=== PATIENT | male | born 1965 | race African-American/Black ===

== ENCOUNTER 2017-11-28 22:35 | Observation (INO) ==
[2017-11-28] MEDS ORDERED: SODIUM CHLORIDE 0.9% 2,000 ML IV STA (22:52)
[2017-11-28] MEDS ORDERED: ONDANSETRON 4 MG/2 ML VIAL IV STA (22:52)
[2017-11-28] MEDS ORDERED: ASPIRIN CHEW 81 MG TABLET PO STA (22:53)
[2017-11-28] MEDS ORDERED: THIAMINE 200 MG/2 ML VIAL IV STA (22:53)
[2017-11-28] MEDS ORDERED: THIAMINE 200 MG/2 ML VIAL ONE (23:21)
[2017-11-28] MEDS ORDERED: ASPIRIN 325 MG TABLET ONE (23:22)
[2017-11-28] MEDS ORDERED: ONDANSETRON 4 MG/2 ML VIAL ONE (23:22)
[2017-11-29 00:02] LABS: Basophils % 0.5 % (0.0-0.8); Eosinophils % 0.1 % (0.00-10.9); Hematocrit 31.4 VOL% (42.0-52.0); Hemoglobin 11.3 GM/DL (14.0-18.0); Immature Granulocytes % 0.8 %; Immature Granulocytes Absolute 0.06 #; Lymphocytes # 0.9 10*3/uL (1.4-4.0); Lymphocytes % 11.7 % (21.2-54.2); Mean Corpuscular Hemoglobin 33 PG (27-34); Mean Corpuscular Volume 91.5 FL (87-102); Mean Platelet Volume 10.9 FL (9.6-12.0); Monocytes # 0.7 10*3/uL (0.11-0.8); Monocytes % 9.5 % (1.7-12.7); Neutrophils % 77.4 % (38.7-73.9); Platelet Count 74 T/CUMM (130-400); Red Blood Count 3.43 MC/CUMM (3.8-5.5); Red Cell Distribution Width 12.6 % (9.3-17.3); White Blood Count 7.7 T/CUMM (4-12)
[2017-11-29 00:20] LABS: Alanine Aminotransferase 52 U/L (16-61); Albumin 3.8 G/DL (3.4-5.0); Alkaline Phosphatase 72 U/L (45-117); Aspartate Amino Transferase 85 U/L (0-37); Bilirubin,Indirect 1.3 MG/DL (0.0-1.0); Total Protein 8.3 G/DL (6.4-8.3); Troponin I Only < 0.015 NG/ML (0.00-0.045)
[2017-11-29 01:46] LABS: Apearance,Urine CLOUDY (Clear); Bacteria,Urine Occasional /HPF (Few); Bilirubin,Urine Negative (Negative); Blood, Urine Small mg/dL (Negative); Glucose,Urine (UA) 50 mg/dL (Negative); Granular Casts,Urine 3 /LPF (0-1); Hyaline Casts,Urine 85 /LPF (0-3); Ketones,Urine 5 mg/dL (Negative); Mucus,Urine Occasional /LPF (Occasional); Nitrite,Urine Negative (Negative); Protein,Urine 100 MG/DL; RBC,Urine 1 /HPF (0-4); Squamous Epithelial Cell,Urine Occasional /HPF (0-10); Urine Color Amber (Yellow); Urine Specific Gravity 1.023 (1.001-1.035); WBC,Urine 2 /HPF (0-6)
[2017-11-29 03:00] LABS: Calcium 8.9 MG/DL (8.5-10.1); Osmolality,Calculated 260.2 MOS/KG (273-304); Potassium 3.3 MMOL/L (3.5-5.1)
[2017-11-29] MEDS ORDERED: ONDANSETRON 4 MG/2 ML VIAL IV PRN (03:10)
[2017-11-29] MEDS ORDERED: LORazepam 2 MG/1 ML VIAL IV PRN (03:10)
[2017-11-29] MEDS ORDERED: MORPHINE 10 MG/1 ML VIAL IV PRN (03:10)
[2017-11-29] MEDS ORDERED: MAGNESIUM SULF RIDER 2 GM in PREMIX 1 EACH IV ONE (03:16)
[2017-11-29] MEDS ORDERED: POTASSIUM CHLORIDE 20 MEQ TABLET PO ONE (03:30)
[2017-11-29 03:44] LABS: Barbiturates Screen,Urine Negative (Negative); Benzodiazepines Screen,Urine Negative (Negative); Cannabinoid Screen,Urine Negative (Negative); Opiate Screen,Urine Negative (Negative); Phencyclidine Screen,Urine Negative (Negative)
[2017-11-29 03:53] LABS: Basophils # 0.1 10*3/uL (0.0-0.2); Basophils % 0.7 % (0.0-0.8); Hematocrit 26.3 VOL% (42.0-52.0); Hemoglobin 9.5 GM/DL (14.0-18.0); Immature Granulocytes % 2.4 %; Immature Granulocytes Absolute 0.17 #; Lymphocytes # 0.9 10*3/uL (1.4-4.0); Lymphocytes % 13.1 % (21.2-54.2); Mean Corpuscular HGB Conc 36.1 GM/DL (32-36); Mean Corpuscular Hemoglobin 33 PG (27-34); Mean Platelet Volume 10.5 FL (9.6-12.0); Monocytes # 0.7 10*3/uL (0.11-0.8); Monocytes % 9.6 % (1.7-12.7); Neutrophils # 5.2 10*3/uL (1.4-7.4); Neutrophils % 74.2 % (38.7-73.9); Red Blood Count 2.89 MC/CUMM (3.8-5.5); Red Cell Distribution Width 12.8 % (9.3-17.3)
[2017-11-29 03:59] LABS: Platelet Count 62 T/CUMM (130-400)
[2017-11-29 04:15] LABS: Cholesterol 175 MG/DL (50-200); HDL Cholesterol 81 MG/DL (40-60); Risk Ratio 2.16; Triglycerides 52 MG/DL (2-150); VLDL CHOLESTEROL 10.4 MG/DL
[2017-11-29 04:20] LABS: Band Neutrophils 3 % (0-10); Lymphocytes 15 % (20-55); Platelet Estimate Decreased; Segmented Neutrophils 70 % (50-85); Total Cells Counted 100
[2017-11-29 04:21] LABS: Giant Platelets Few; Hypochromasia 1+
[2017-11-29 04:26] LABS: Folate 3.4 NG/ML (5.4-24.0); Vitamin B12 438 PG/ML (211-911)
[2017-11-29] MEDS ORDERED: MAGNESIUM SULF RIDER 1 GM in PREMIX 1 EACH IV ONE (04:30)
[2017-11-29] MEDS: SODIUM CHLORIDE 0.9% 1,000 ML IV SCH ×2 (04:40→14:31)
[2017-11-29 05:04] LABS: Sedimentation Rate-Westergren 70 MM/HR (0-15)
[2017-11-29] MEDS: NITROGLYCERIN 2% OINT 1 INCH/GM PACK TOP SCH ×3 (06:22→17:57)
[2017-11-29 09:32] LABS: Hemoglobin A1 (Alkaline) 97.7 % (96.5-98.5); Hemoglobin A2 (Alkaline) 2.3 % (1.5-3.5)
[2017-11-29] MEDS: FOLIC ACID 1 MG TABLET PO SCH (09:36)
[2017-11-29] MEDS: MULTIVITAMIN (CENTRUM) TABLET PO SCH (09:36)
[2017-11-29] MEDS: ASPIRIN EC 81 MG TABLET PO SCH (09:36)
[2017-11-29] MEDS: THIAMINE 100 MG TABLET PO SCH (09:36)
[2017-11-29] MEDS: amLODIPine 5 MG TABLET PO SCH (11:42)
[2017-11-29] MEDS: SODIUM CHLORIDE 1 GM TABLET PO SCH ×2 (15:51→20:43)
[2017-11-30] MEDS: NITROGLYCERIN 2% OINT 1 INCH/GM PACK TOP SCH ×4 (02:18→18:35)
[2017-11-30 05:44] LABS: Albumin 3.3 G/DL (3.4-5.0); Bilirubin,Total 1.4 MG/DL (0.2-1.0); Calcium 8.4 MG/DL (8.5-10.1); Osmolality,Calculated 268.1 MOS/KG (273-304); Total Protein 7.1 G/DL (6.4-8.3)
[2017-11-30] MEDS: MULTIVITAMIN (CENTRUM) TABLET PO SCH (09:18)
[2017-11-30] MEDS: ASPIRIN EC 81 MG TABLET PO SCH (09:18)
[2017-11-30] MEDS: FOLIC ACID 1 MG TABLET PO SCH (09:18)
[2017-11-30] MEDS: amLODIPine 5 MG TABLET PO SCH (09:18)
[2017-11-30] MEDS: THIAMINE 100 MG TABLET PO SCH (09:19)
[2017-11-30] MEDS: POTASSIUM CHLORIDE 20 MEQ TABLET PO PRN ×4 (09:19→21:51)
[2017-11-30] MEDS: SODIUM CHLORIDE 1 GM TABLET PO SCH ×3 (09:47→21:51)
[2017-11-30] MEDS ORDERED: ALUMINUM/MAGNES/SIMETH MAX STR 30 ML UDCUP PO PRN (11:10)
[2017-11-30] MEDS ORDERED: PANTOPRAZOLE 20 MG TABLET PO SCH (11:12)
[2017-11-30] MEDS: POTASSIUM CHLORIDE 20 MEQ TABLET PO SCH (14:48)
[2017-11-30] MEDS: LISINOPRIL 10 MG TABLET PO SCH (17:15)
[2017-12-01] MEDS: NITROGLYCERIN 2% OINT 1 INCH/GM PACK TOP SCH ×3 (02:12→12:32)
[2017-12-01 08:48] VITALS: BP 125/94
[2017-12-01] MEDS: THIAMINE 100 MG TABLET PO SCH (09:32)
[2017-12-01] MEDS: amLODIPine 5 MG TABLET PO SCH (09:32)
[2017-12-01] MEDS: FOLIC ACID 1 MG TABLET PO SCH (09:32)
[2017-12-01] MEDS: POTASSIUM CHLORIDE 20 MEQ TABLET PO SCH (09:32)
[2017-12-01] MEDS: LISINOPRIL 10 MG TABLET PO SCH (09:32)
[2017-12-01] MEDS: ASPIRIN EC 81 MG TABLET PO SCH (09:32)
[2017-12-01] MEDS: MULTIVITAMIN (CENTRUM) TABLET PO SCH (09:32)
[2017-12-01] MEDS: SODIUM CHLORIDE 1 GM TABLET PO SCH (12:31)
== END 2017-12-01 12:31 | disposition home or self-care (01) ==
LOC: EDUNIT# → EDBD → N.EDINP 22:35 → N.ED 22:35 → SUATTDRO 11-29 03:11 → N.TELEN 11-29 03:54
PROVIDERS: ADMIT Internal Medicine Infectious Disease; ATTEND Hospitalist

== ENCOUNTER 2020-08-19 08:19 | Inpatient (IN) ==
[2020-08-19] MEDS ORDERED: ONDANSETRON 4 MG/2 ML VIAL IV STA (08:43)
[2020-08-19] MEDS ORDERED: SODIUM CHLORIDE 0.9% 1,000 ML IV STA (08:50)
[2020-08-19 08:58] LABS: Basophils # 0.1 10*3/uL (0.0-0.2); Basophils % 0.8 % (0.0-0.8); Eosinophils % 0.3 % (0.00-10.9); Hematocrit 30.8 VOL% (42.0-52.0); Hemoglobin 11.4 GM/DL (14.0-18.0); Immature Granulocytes % 0.6 %; Immature Granulocytes Absolute 0.05 #; Lymphocytes # 1.2 10*3/uL (1.4-4.0); Lymphocytes % 15.8 % (21.2-54.2); Mean Corpuscular Volume 91.7 FL (87-102); Mean Platelet Volume 10.3 FL (9.6-12.0); Monocytes % 7.1 % (1.7-12.7); Neutrophils % 75.4 % (38.7-73.9); Platelet Count 106 T/CUMM (130-400); Red Blood Count 3.36 MC/CUMM (3.8-5.5); Red Cell Distribution Width 12.6 % (9.3-17.3); White Blood Count 7.7 T/CUMM (4-12)
[2020-08-19 09:11] LABS: Calcium 9.3 MG/DL (8.5-10.1); Osmolality,Calculated 267.8 MOS/KG (273-304)
[2020-08-19] MEDS ORDERED: PANTOPRAZOLE 40 MG VIAL IV STA (09:13)
[2020-08-19 09:26] LABS: Anisocytosis Slight; Band Neutrophils 17 % (0-10); Lymphocytes 19 % (20-55); Platelet Estimate Adequate; Segmented Neutrophils 59 % (50-85); Total Cells Counted 100
[2020-08-19 09:27] LABS: Macrocytosis Slight
[2020-08-19 09:34] LABS: Albumin 3.8 G/DL (3.4-5.0); Bilirubin,Total 1.9 MG/DL (0.2-1.0); Calcium 8.8 MG/DL (8.5-10.1); Osmolality,Calculated 264.1 MOS/KG (273-304); Total Protein 8.4 G/DL (6.4-8.3)
[2020-08-19] MEDS ORDERED: THIAMINE 200 MG/2 ML VIAL IM STA (09:54)
[2020-08-19] MEDS ORDERED: ONDANSETRON 4 MG/2 ML VIAL IV PRN (10:00)
[2020-08-19] MEDS ORDERED: GLUCAGON 1 MG VIAL IM PRN (10:00)
[2020-08-19] MEDS ORDERED: DEXTROSE 50% 25 GM/50 ML VIAL IV PRN (10:00)
[2020-08-19] MEDS ORDERED: LORazepam 1 MG TABLET PO STA (10:00)
[2020-08-19] MEDS ORDERED: ACETAMINOPHEN 325 MG TABLET PO PRN (10:00)
[2020-08-19] MEDS ORDERED: POTASSIUM CHLORIDE RIDER 10 MEQ in PREMIX 1 EACH IV PRN (10:06)
[2020-08-19] MEDS ORDERED: INFLUENZA VIRUS VACCINE 0.5 ML SYRINGE IM ONE (12:23)
[2020-08-19] MEDS ORDERED: PNEUMOCOCCAL VACCINE (23 VALENT) 0.5 ML VIAL IM ONE (12:23)
[2020-08-19] MEDS: DEXTROSE 5% NACL 0.9% 1,000 ML IV SCH (13:04)
[2020-08-19] MEDS ORDERED: THIAMINE INJ 100 MG, FOLIC ACID INJ 1 MG, MULTIVITAMIN INJ 10 ML in SODIUM CHLORIDE 0.9... IV SCH (13:30)
[2020-08-19] MEDS ORDERED: chlordiazePOXIDE 25 MG CAPSULE PO PRN (14:42)
[2020-08-19] MEDS ORDERED: MAGNESIUM SULF RIDER 4 GM in PREMIX 1 EACH IV ONE (14:50)
[2020-08-19] MEDS ORDERED: FOLIC ACID IV ONE (15:00)
[2020-08-19] MEDS ORDERED: [UNRECOGNIZED DRUG - OTHER] IV ONE (15:00)
[2020-08-19] MEDS ORDERED: MAGNESIUM SULF IV ONE (15:00)
[2020-08-19] MEDS ORDERED: POTASSIUM CHLORIDE IV ONE (15:00)
[2020-08-19] MEDS ORDERED: chlordiazePOXIDE 25 MG CAPSULE PO ONE (15:30)
[2020-08-19] MEDS: PANTOPRAZOLE 40 MG VIAL IV SCH (20:54)
[2020-08-19] MEDS ORDERED: ACETAMINOPHEN 500 MG TABLET PO PRN (22:04)
[2020-08-19] MEDS: POTASSIUM CHLORIDE 20 MEQ/15 ML UDCUP PO SCH (22:18)
[2020-08-20] MEDS: DEXTROSE 5% NACL 0.9% 1,000 ML IV SCH ×3 (03:55→15:46)
[2020-08-20 04:58] LABS: Basophils % 0.9 % (0.0-0.8); Eosinophils # 0.1 10*3/uL (0.0-0.87); Eosinophils % 1.9 % (0.00-10.9); Hematocrit 25.1 VOL% (42.0-52.0); Immature Granulocytes % 0.7 %; Immature Granulocytes Absolute 0.03 #; Lymphocytes # 1.1 10*3/uL (1.4-4.0); Lymphocytes % 24.7 % (21.2-54.2); Mean Corpuscular HGB Conc 35.5 GM/DL (32-36); Mean Corpuscular Volume 95.8 FL (87-102); Mean Platelet Volume 10.5 FL (9.6-12.0); Monocytes % 8.7 % (1.7-12.7); Neutrophils % 63.1 % (38.7-73.9); Red Cell Distribution Width 12.7 % (9.3-17.3)
[2020-08-20 05:05] LABS: Calcium 8.3 MG/DL (8.5-10.1); Osmolality,Calculated 269.2 MOS/KG (273-304)
[2020-08-20 05:17] LABS: Hemoglobin 8.9 GM/DL (14.0-18.0); Platelet Count 99 T/CUMM (130-400); Red Blood Count 2.62 MC/CUMM (3.8-5.5); White Blood Count 4.3 T/CUMM (4-12)
[2020-08-20] MEDS: POTASSIUM CHLORIDE 20 MEQ/15 ML UDCUP PO SCH (05:19)
[2020-08-20 05:22] LABS: Hypochromasia 1+; Lymphocytes 18 % (20-55); Microcytosis 1+; Ovalocytes Slight; Platelet Estimate Decreased; Segmented Neutrophils 75 % (50-85); Total Cells Counted 100
[2020-08-20] MEDS ORDERED: LACTATED RINGERS 1,000 ML IV SCH (07:00)
[2020-08-20] MEDS: MULTIVITAMIN (CENTRUM) TABLET PO SCH (08:02)
[2020-08-20] MEDS: FOLIC ACID 1 MG TABLET PO SCH (08:02)
[2020-08-20] MEDS: THIAMINE 100 MG TABLET PO SCH (08:02)
[2020-08-20] MEDS ORDERED: propofoL 200 MG/20 ML VIAL IV ONE (09:07)
[2020-08-20] MEDS ORDERED: LIDOCAINE 2% 5 ML VIAL ONE (09:07)
[2020-08-20] MEDS ORDERED: POTASSIUM PHOSPHATE IV ONE (10:00)
[2020-08-20] MEDS ORDERED: POTASSIUM CHLORIDE IV ONE (10:00)
[2020-08-20] MEDS ORDERED: [UNRECOGNIZED DRUG - OTHER] IV ONE (10:00)
[2020-08-20] MEDS: PANTOPRAZOLE 40 MG VIAL IV SCH ×2 (10:07→21:30)
[2020-08-21] MEDS: DEXTROSE 5% NACL 0.9% 1,000 ML IV SCH ×2 (01:30→13:26)
[2020-08-21 06:22] LABS: Basophils % 0.6 % (0.0-0.8); Eosinophils # 0.1 10*3/uL (0.0-0.87); Eosinophils % 2.1 % (0.00-10.9); Hemoglobin 8.7 GM/DL (14.0-18.0); Immature Granulocytes % 0.6 %; Immature Granulocytes Absolute 0.02 #; Lymphocytes # 1.3 10*3/uL (1.4-4.0); Lymphocytes % 39.3 % (21.2-54.2); Mean Corpuscular HGB Conc 34.8 GM/DL (32-36); Mean Corpuscular Volume 97.7 FL (87-102); Mean Platelet Volume 10.1 FL (9.6-12.0); Monocytes % 19.3 % (1.7-12.7); Neutrophils % 38.1 % (38.7-73.9); Platelet Count 123 T/CUMM (130-400); Red Blood Count 2.56 MC/CUMM (3.8-5.5); Red Cell Distribution Width 12.7 % (9.3-17.3); White Blood Count 3.4 T/CUMM (4-12)
[2020-08-21 06:57] LABS: Atypical Lymphocytes Few; Band Neutrophils 1 % (0-10); Eosinophils 1 % (0-10); Lymphocytes 50 % (20-55); Segmented Neutrophils 35 % (50-85); Total Cells Counted 100
[2020-08-21 06:58] LABS: Hypochromasia 1+; Microcytosis 1+; Platelet Estimate Adequate
[2020-08-21] MEDS: FOLIC ACID 1 MG TABLET PO SCH (08:24)
[2020-08-21] MEDS: THIAMINE 100 MG TABLET PO SCH (08:24)
[2020-08-21] MEDS: PANTOPRAZOLE 40 MG VIAL IV SCH (08:24)
[2020-08-21] MEDS: MULTIVITAMIN (CENTRUM) TABLET PO SCH (08:24)
[2020-08-21 09:27] LABS: Calcium 8.2 MG/DL (8.5-10.1); Osmolality,Calculated 271.7 MOS/KG (273-304)
[2020-08-21] MEDS ORDERED: SODIUM CHLORIDE 0.9% IV ONE (11:00)
[2020-08-21] MEDS ORDERED: POTASSIUM PHOSPHATE IV ONE (11:00)
[2020-08-21 11:34] VITALS: BP 152/84
== END 2020-08-21 13:33 | disposition home or self-care (01) | DRG 381 ==
LOC: N.ED 08:19 → N.EDINP 09:55 → N.5E 11:26
PROVIDERS: ADMIT Internal Medicine; ATTEND Internal Medicine